=== PATIENT | female | born 1990 | race American Indian/Alaskan Native ===

== ENCOUNTER 2021-02-26 08:34 | Emergency (ER) | payer SELFPAY ==
[2021-02-26 08:38] VITALS: BP 157/92
[2021-02-26] MEDS ORDERED: methylPREDNISolone ACETATE 80 MG/1 ML INJ IM ONE (08:50)
--- NOTE | 2021-02-26 08:50 | Emergency Department Report ---
ED Rash HPI - HPI Chief Complaint: Skin Rash Stated Complaint: SKIN BREAKING OUT/KNOT ON LEFT BREAST Time Seen by Provider: 02/26/21 08:49 Location: Neck, Chest, Back, Abdomen, Lower Extremities Suspected Cause: Unknown Rash Symptoms: Yes Itching, No Facial Swelling, No Tongue/Oral Swelling, No Breathing Difficulties, No Choking Sensation, No Wheezing/Dyspnea, No Peeling, No Blistering, No Fever, No Lightheaded, No Malaise, No Myalgias Severity: moderate Other History: 30 YO COMES TO ER WITH A GENERALIZED, MACULAR RASH. IN VARIOUS STAGES OF HEALING. SHE SAYS ITS BEEN THERE SOME TIME. SHE HAS NOT SEEN MD. HAS BEEN USING VASOLINE AT HOME. SHE STATES SHE NOTICED A LUMP UNDER HER LEFT ARM AND READ ON GOOGLE IT COULD BE CANCER. NO FEVER. NO CHILLS. NO SYSTEMIC SYMTPOMS. PT DENIES HX OF THE SAME. SHE DENIES KNOWING WHAT TRIGGER MAY BE. SHE DENIES NEW LOTION/SOAP ETC. KNOWS OF NO NEW EXPOSURE. AMBULATORY AND NON ILL APPEARING. ED Review of Systems ROS: Stated complaint: SKIN BREAKING OUT/KNOT ON LEFT BREAST Other details as noted in HPI Comment: All other systems reviewed and negative ED Past Medical Hx - Past Medical History Previous Medical History?: No - Surgical History Past Surgical History?: No - Family History Family history: no significant - Social History Smoking Status: Never Smoker Substance Use Type: None - Medications Home Medications: Home Medications Medication Instructions Recorded Confirmed Last Taken Type Famotidine [Pepcid] 20 mg PO DAILY #14 tablet 02/26/21 Unknown Rx diphenhydrAMINE [Benadryl CAP] 25 mg PO Q8HR PRN #20 capsule 02/26/21 Unknown Rx predniSONE [Deltasone] 20 mg PO DAILY #5 tablet 02/26/21 Unknown Rx Rash Exam - Exam General: Vital signs noted. No distress. Alert and acting appropriately. L AXILLARY LYMPHADENOPATHY HEENT: No Periorbital Edema, No Conjuctival Injection, No Chemosis, No Perioral Edema, No Tongue Edema, No Uvular Edema, No Compromised Airway, No Drooling Lungs: Yes Good Air Exchange (Normal Breath Sounds), No Wheezes, No Ronchi, No Stridor, No Cough, No Labored Respirations, No Retractions, No Use of Accessory Muscles, No Other Abnormal Lung Sounds Heart: Yes Regular, No Murmur Skin: Yes Excoriations, Yes Erythema Other: Positive: Abdomen Normal, Neurologic Normal, Musculoskeletal Normal ED Course Vital Signs 02/26/21 08:37 Temperature 98.4 F Pulse Rate 108 H Respiratory 19 Rate Blood Pressure 157/92 O2 Sat by Pulse 99 Oximetry ED Medical Decision Making - Medical Decision Making Vital Signs 02/26/21 08:37 Temperature 98.4 F Pulse Rate 108 H Respiratory 19 Rate Blood Pressure 157/92 O2 Sat by Pulse 99 Oximetry HR ON PROVIDER EXAM 90 PT REASSURED SHE DOES NOT HAVE CANCER. MEDICATED WITH BENADRYL, PEPCID AND IM METHYLPRED FOR COMFORT ? ETIO OF RASH BUT IT IS ACUTE/CHRONIC FOR IT IS IN VARIOUS STAGES OF HEALING; GENERALIZED; MACULAR; DRY; NO OPEN AREA; NO SECONDARY INFECTIOUS SYMPTOMS; NO DRAINAGE; NO ABSCESS NO OCULAR OR ORAL LESIONS NO FEVER/ CHILLS NO HEADACHE OR NEURO SYMPTOMS NO COUGH/CONGESTION NO ABD PAIN PT AMBULATORY, NON ILL, NON TOXIC. TAKING PO. PT DC HOME WITH DC PLAN OF CARE INCLUDING FOLLOW UP, MEDS, AND SKIN CARE. SHE IS CONCERNED BECAUSE SHE HAS NO INSURANCE AND IS CONCERNED NO ONE WILL SEE HER-[facility]DON GIVEN HER SEVERAL OPTIONS FOR FOLLOW UP INCLUDING PCP HERE AT [facility]. PT VERBALIZES UNDERSTANDING OF PLAN OF CARE - Differential Diagnosis A/C SKIN RASH ? ETIO Critical care attestation.: If time is entered above; I have spent that time in minutes in the direct care of this critically ill patient, excluding procedure time. ED Disposition Clinical Impression: Rash Disposition: 01 HOME / SELF CARE / HOMELESS Is pt being admited?: No Does the pt Need Aspirin: No Condition: Stable Instructions: Rash, Adult Additional Instructions: AVOID VASOLINE USE OVER THE COUNTER HYDRATING LOTION FOR DRY AREAS MEDS ORDERED TODAY FOLLOW UP WITH PCP AND DERM WE DISCUSSED REFERRAL BELOW Prescriptions: diphenhydrAMINE [Benadryl CAP] 25 mg PO Q8HR PRN #20 capsule PRN Reason: Itching predniSONE [Deltasone] 20 mg PO DAILY #5 tablet Famotidine [Pepcid] 20 mg PO DAILY #14 tablet Referrals: JEFF LANDRUM MD [Staff Physician] - 3-5 Days [facility] [Outside] - 3-5 Days [facility] [Outside] - 3-5 Days [facility] [Outside] - 3-5 Days LEONEL MONGE MD [Staff Physician] - 3-5 Days Time of Disposition: 08:50
[2021-02-26] MEDS ORDERED: FAMOTIDINE 20 MG TAB PO ONE (08:51)
[2021-02-26] MEDS ORDERED: diphenhydrAMINE 25 MG CAP PO ONE (08:51)
== END 2021-02-26 09:31 | disposition home or self-care (01) ==
LOC: ED 08:34
DX: R21 Rash and other nonspecific skin eruption (principal)
CPT/HCPCS: 96372; 99282; J1040